=== PATIENT | female | born 1990 | race Hispanic/Latino ===

== ENCOUNTER 2023-01-13 10:01 | Outpatient (CLI) | payer BC | END 2023-01-13 10:02 | disposition home or self-care (01) | LOC: BICMAMMO 10:01 | PROVIDERS: ATTEND Obstetrics & Gynecology Reproductive Endocrinology | DX: Z12.31 Encounter for screening mammogram for malignant neoplasm of breast (principal); N63.11 Unspecified lump in the right breast, upper outer quadrant; Z98.82 Breast implant status | CPT/HCPCS: 77063; 77067 ==

== ENCOUNTER 2023-07-19 10:53 | Outpatient (CLI) | payer BC | END 2023-07-19 10:54 | disposition home or self-care (01) | LOC: BICULT 10:53 | PROVIDERS: ATTEND Obstetrics & Gynecology Reproductive Endocrinology | DX: N63.11 Unspecified lump in the right breast, upper outer quadrant (principal) ==